=== PATIENT | female | born 1965 ===

== ENCOUNTER 2023-02-01 10:52 | Emergency (ER) | payer MEDICARE ==
[2023-02-01] MEDS: Ketorolac 30 MG/ML SDV IM ONE (11:35)
== END 2023-02-01 12:23 | disposition home or self-care (01) ==
LOC: DL.ED 10:52
DX: S59.902A Unspecified injury of left elbow, initial encounter (principal); J44.9 Chronic obstructive pulmonary disease, unspecified; F17.210 Nicotine dependence, cigarettes, uncomplicated; V89.9XXA Person injured in unspecified vehicle accident, initial encounter; Z79.51 Long term (current) use of inhaled steroids
CPT/HCPCS: 73080; 96372; 99282; 99283; J1885